=== PATIENT | female | born 2000 | race Caucasian/White ===

== ENCOUNTER 2023-04-01 20:34 | Emergency (ER) | payer OTHER ==
[~2023-04-01] VITALS: Ht 165.1 cm; Wt 107.9 kg
[2023-04-01 20:36] VITALS: TEMP 97.8
[2023-04-01] MEDS ORDERED: NS 1,000 ML IV ONE (22:40)
[2023-04-01 23:58] LABS: BASO % 0.5 % (0.0-1.0); EOS # 0.1 10^3/uL (0.0-0.5); EOS % 1.1 % (0.0-3.0); LYMPH # 2.8 10^3/uL (1.5-5.0); LYMPH % 34.6 % (24.0-44.0); MONO # 0.3 10^3/uL (0.0-0.8); MONO % 4.2 % (2.0-8.0); NEUTROPHILS # 4.8 10^3/uL (1.5-8.5); NEUTROPHILS % 59.2 % (36.0-66.0)
[2023-04-02 00:17] LABS: INR 0.98; PROTHROMBIN TIME 13.2 SECONDS (12.5-14.5)
[2023-04-02 00:18] LABS: PARTIAL THROMBOPLASTIN TIME 29.9 SECONDS (24.8-34.2)
[2023-04-02 00:22] LABS: CK-MB VALUE MASS 1.1 NG/ML (<3.6); LIPASE 35 U/L (12-53)
[2023-04-02 00:33] LABS: ALBUMIN 4.6 G/DL (3.2-5.2); ALKALINE PHOSPHATASE 121 U/L (46-116); ALT/SGPT 18 U/L (7.0-40); AST/SGOT 12 U/L (<34); BILIRUBIN,TOTAL 0.4 MG/DL (0.3-1.2); BLOOD UREA NITROGEN 15 MG/DL (9-23); CALCIUM LEVEL 9.8 MG/DL (8.5-10.1); CARBON DIOXIDE LEVEL 25 MMOL/L (20-31); CHLORIDE LEVEL 103 MMOL/L (98-107); GLUCOSE, FASTING 81 MG/DL (60-100); POTASSIUM SERUM 4.1 MMOL/L (3.5-5.1); SODIUM LEVEL 140 MMOL/L (136-145); TOTAL PROTEIN 8.3 G/DL (5.7-8.2)
[2023-04-02 00:51] LABS: HEMATOCRIT 45.1 % (36.0-47.0); HEMOGLOBIN 14.3 g/dl (12.0-15.5); MEAN CORPUSCULAR HEMOGLOBIN 25.1 pg (27.0-33.0); MEAN CORPUSCULAR HGB CONC 31.7 g/dl (32.0-36.5); MEAN CORPUSCULAR VOLUME 79.3 fl (80.0-96.0); PLATELET COUNT, AUTOMATED 241 10^3/uL (150-450); RED BLOOD COUNT 5.69 10^6/uL (4.00-5.40); WHITE BLOOD COUNT 8.2 10^3/uL (4.0-10.0)
[2023-04-02 01:19] LABS: CPK CREATINE PHOSPHOKINASE 129 U/L (34-145); MB/CK RELATIVE INDEX 0.85 (< OR =4)
[2023-04-02 01:20] LABS: D-DIMER QUANT < 270 ng/ml (<500)
[2023-04-02] MEDS ORDERED: HYOSCYAMINE SULFATE 0.125 MG SUBL TABLET SL ONE (01:50)
[2023-04-02] MEDS ORDERED: KETOROLAC 30 MG/ML 1ML VIAL IV ONE (01:50)
[2023-04-02 01:57] LABS: HCG, SERUM QUALITATIVE NEGATIVE (NEGATIVE)
[2023-04-02] MEDS ORDERED: ISOVUE-370 76% 100ML VIAL As Ordered ONE (01:57)
[2023-04-02] MEDS ORDERED: KETO10TAB PO (02:47)
[2023-04-02 03:00] VITALS: BP 110/56
[2023-04-02 03:04] VITALS: O2SAT 97
== END 2023-04-02 03:27 | disposition home or self-care (01) ==
LOC: M ED 20:34
DX: R07.9 Chest pain, unspecified (principal); Z79.899 Other long term (current) drug therapy
CPT/HCPCS: 71045; 71260; 80053; 82550; 82553; 83690; 83735; 84484; 84703; 85025; 85379; 85610; 85730; 93005; 96361; 96374; 99285; J1885; Q9967

== ENCOUNTER 2023-04-25 15:30 | Emergency (ER) | payer OTHER ==
[~2023-04-25] VITALS: Ht 165.1 cm; Wt 106.1 kg
[~2023-04-25 15:30] MED LIST: KETO10TAB PO
[2023-04-25 16:36] LABS: BASO % 0.2 % (0.0-1.0); EOS % 0.4 % (0.0-3.0); HEMATOCRIT 38.7 % (36.0-47.0); HEMOGLOBIN 12.3 g/dl (12.0-15.5); LYMPH # 1.1 10^3/uL (1.5-5.0); LYMPH % 13.3 % (24.0-44.0); MEAN CORPUSCULAR HEMOGLOBIN 25.1 pg (27.0-33.0); MEAN CORPUSCULAR HGB CONC 31.8 g/dl (32.0-36.5); MEAN CORPUSCULAR VOLUME 78.8 fl (80.0-96.0); MONO # 0.4 10^3/uL (0.0-0.8); MONO % 4.5 % (2.0-8.0); NEUTROPHILS # 6.9 10^3/uL (1.5-8.5); NEUTROPHILS % 81.4 % (36.0-66.0); PLATELET COUNT, AUTOMATED 225 10^3/uL (150-450); RED BLOOD COUNT 4.91 10^6/uL (4.00-5.40); WHITE BLOOD COUNT 8.4 10^3/uL (4.0-10.0)
[2023-04-25 16:57] LABS: BLOOD UREA NITROGEN 7 MG/DL (9-23); CARBON DIOXIDE LEVEL 23 MMOL/L (20-31); CHLORIDE LEVEL 106 MMOL/L (98-107); CREATININE FOR GFR 0.77 MG/DL (0.55-1.30); GLUCOSE, FASTING 87 MG/DL (60-100); POTASSIUM SERUM 4.2 MMOL/L (3.5-5.1); SODIUM LEVEL 139 MMOL/L (136-145)
[2023-04-25 20:31] VITALS: BP 139/72; TEMP 97.7; O2SAT 100
== END 2023-04-25 20:32 | disposition home or self-care (01) ==
LOC: M ED 15:30
DX: O20.9 Hemorrhage in early pregnancy, unspecified (principal); Z3A.00 Weeks of gestation of pregnancy not specified

== ENCOUNTER → 2023-04-27 | Outpatient (CLI) | payer OTHER | LOC: M LAB 16:50 | PROVIDERS: ATTEND Physician Assistant | DX: O20.8 Other hemorrhage in early pregnancy (principal) ==

== ENCOUNTER → 2023-05-05 | Outpatient (CLI) | payer OTHER | LOC: M LAB 15:44 | PROVIDERS: ATTEND Obstetrics & Gynecology | DX: N91.2 Amenorrhea, unspecified (principal) ==

== ENCOUNTER 2023-06-17 09:42 | Emergency (ER) | payer OTHER ==
[~2023-06-17] VITALS: Ht 165.1 cm; Wt 100.9 kg
[2023-06-17] MEDS ORDERED: PNV,1TAB3 (09:56)
[2023-06-17] MEDS ORDERED: UNIS25TA3 (09:56)
[2023-06-17] MEDS ORDERED: PYRI50TA41 (09:56)
[2023-06-17 12:03] LABS: BASO % 0.2 % (0.0-1.0); EOS % 0.4 % (0.0-3.0); HEMATOCRIT 38.6 % (36.0-47.0); HEMOGLOBIN 12.6 g/dl (12.0-15.5); LYMPH # 1.4 10^3/uL (1.5-5.0); LYMPH % 17.6 % (24.0-44.0); MEAN CORPUSCULAR HEMOGLOBIN 26.1 pg (27.0-33.0); MEAN CORPUSCULAR HGB CONC 32.6 g/dl (32.0-36.5); MEAN CORPUSCULAR VOLUME 79.9 fl (80.0-96.0); MONO # 0.2 10^3/uL (0.0-0.8); MONO % 2.7 % (2.0-8.0); NEUTROPHILS # 6.3 10^3/uL (1.5-8.5); NEUTROPHILS % 78.9 % (36.0-66.0); PLATELET COUNT, AUTOMATED 216 10^3/uL (150-450); RED BLOOD COUNT 4.83 10^6/uL (4.00-5.40)
[2023-06-17] MEDS ORDERED: ONDANSETRON 4MG ORAL DISINTEGRATING TAB PO ONE (12:20)
[2023-06-17 12:37] LABS: BLOOD UREA NITROGEN 6 MG/DL (9-23); CALCIUM LEVEL 8.9 MG/DL (8.5-10.1); CARBON DIOXIDE LEVEL 21 MMOL/L (20-31); CHLORIDE LEVEL 103 MMOL/L (98-107); CREATININE FOR GFR 0.55 MG/DL (0.55-1.30); GLUCOSE, FASTING 79 MG/DL (60-100); POTASSIUM SERUM 3.8 MMOL/L (3.5-5.1); SODIUM LEVEL 135 MMOL/L (136-145)
[2023-06-17 12:50] LABS: HCG, SERUM QUANTITATIVE 77271.4 MIU/ML (<4.2)
[2023-06-17] MEDS ORDERED: ONDA4TAB6 PO (13:33)
[2023-06-17 13:38] VITALS: BP 115/58; TEMP 98.2; O2SAT 99
== END 2023-06-17 14:15 | disposition home or self-care (01) ==
LOC: M ED 09:42
DX: O21.9 Vomiting of pregnancy, unspecified (principal)

== ENCOUNTER 2023-08-04 09:06 | Emergency (ER) | payer OTHER ==
[~2023-08-04] VITALS: Ht 165.1 cm; Wt 98.6 kg
[~2023-08-04 09:06] MED LIST changes: +ONDA4TAB6 PO; +PNV,1TAB3; +PYRI50TA41; +UNIS25TA3
[2023-08-04 11:48] LABS: BASO % 0.2 % (0.0-1.0); EOS # 0.1 10^3/uL (0.0-0.5); EOS % 0.6 % (0.0-3.0); HEMATOCRIT 36.8 % (36.0-47.0); HEMOGLOBIN 12.4 g/dl (12.0-15.5); LYMPH # 1.1 10^3/uL (1.5-5.0); LYMPH % 13.4 % (24.0-44.0); MEAN CORPUSCULAR HGB CONC 33.7 g/dl (32.0-36.5); MEAN CORPUSCULAR VOLUME 80.2 fl (80.0-96.0); MONO # 0.3 10^3/uL (0.0-0.8); MONO % 3.6 % (2.0-8.0); NEUTROPHILS # 6.8 10^3/uL (1.5-8.5); NEUTROPHILS % 81.8 % (36.0-66.0); PLATELET COUNT, AUTOMATED 208 10^3/uL (150-450); RED BLOOD COUNT 4.59 10^6/uL (4.00-5.40); WHITE BLOOD COUNT 8.4 10^3/uL (4.0-10.0)
[2023-08-04] MEDS ORDERED: NS 1,000 ML IV ONE (12:25)
[2023-08-04 13:18] LABS: INR 1.07; PROTHROMBIN TIME 13.5 SECONDS (12.5-14.5)
[2023-08-04 13:19] LABS: PARTIAL THROMBOPLASTIN TIME 29.7 SECONDS (24.8-34.2)
[2023-08-04 13:22] LABS: D-DIMER QUANT 0.59 ug/mL (<0.5)
[2023-08-04 13:25] LABS: ALBUMIN 3.1 G/DL (3.2-5.2); ALKALINE PHOSPHATASE 91 U/L (46-116); ALT/SGPT 16 U/L (7.0-40); AST/SGOT 18 U/L (<34); BILIRUBIN,DIRECT < 0.1 MG/DL (<0.4); BILIRUBIN,TOTAL 0.5 MG/DL (0.3-1.2); BLOOD UREA NITROGEN 6 MG/DL (9-23); CALCIUM LEVEL 8.7 MG/DL (8.5-10.1); CARBON DIOXIDE LEVEL 22 MMOL/L (20-31); CHLORIDE LEVEL 102 MMOL/L (98-107); CK-MB VALUE MASS < 1.0 NG/ML (<3.6); CREATININE FOR GFR 0.55 MG/DL (0.55-1.30); GLUCOSE, FASTING 81 MG/DL (60-100); MAGNESIUM LEVEL 1.8 MG/DL (1.8-2.4); POTASSIUM SERUM 4.1 MMOL/L (3.5-5.1); SODIUM LEVEL 134 MMOL/L (136-145); TOTAL PROTEIN 6.8 G/DL (5.7-8.2)
[2023-08-04 13:27] LABS: FREE T4 1.13 NG/DL (0.83-1.43); THYROID STIMULATING HORMONE 2.854 uIU/ML (0.48-4.17)
[2023-08-04 13:30] LABS: CPK CREATINE PHOSPHOKINASE 26 U/L (34-145); MB/CK RELATIVE INDEX 3.84 (< OR =4)
[2023-08-04 15:03] VITALS: TEMP 98; O2SAT 100
[2023-08-04 15:04] VITALS: BP 116/73
[2023-08-04] MEDS ORDERED: ONDA4TAB6 PO (15:13)
== END 2023-08-04 15:35 | disposition home or self-care (01) ==
LOC: M ED 09:06
DX: O99.891 Other specified diseases and conditions complicating pregnancy (principal); E87.6 Hypokalemia; O99.283 Endocrine, nutritional and metabolic diseases complicating pregnancy, third trimester; O26.50 Maternal hypotension syndrome, unspecified trimester; Z79.899 Other long term (current) drug therapy

== ENCOUNTER 2023-09-10 18:17 | Outpatient (CLI) | payer OTHER ==
[~2023-09-10] VITALS: Ht 165.1 cm; Wt 102.7 kg
[2023-09-10] MEDS ORDERED: ECOT81TA5 PO (18:44)
[2023-09-10] MEDS ORDERED: HOME MED LIST COMPLETE! XX SCH (18:45)
[2023-09-10 19:02] VITALS: BP 125/71
[2023-09-10 19:28] LABS: APPEARANCE, URINE HAZY (CLEAR); BACTERIA, URINE AUTO 1+ (NEGATIVE); BILIRUBIN, URINE AUTO NEGATIVE (NEGATIVE); BLOOD, URINE BLOOD NEGATIVE (NEGATIVE); COLOR, URINE YELLOW (YELLOW); GLUCOSE, URINE (UA) AUTO NEGATIVE (NEGATIVE); KETONE, URINE AUTO NEGATIVE (NEGATIVE); LEUKOCYTE ESTERASE, URINE AUTO TRACE (NEGATIVE); MUCUS, URINE SMALL (NEGATIVE); NITRITE, URINE AUTO NEGATIVE (NEGATIVE); PROTEIN, URINE AUTO NEGATIVE (NEGATIVE); RBC, URINE AUTO 2 /HPF (0-3); SPECIFIC GRAVITY URINE AUTO 1.031 (1.002-1.035); SQUAMOUS EPITHELIAL CELL UR AU 4 /HPF (0-6); UROBILINOGEN, URINE AUTO 0.2 mg/dL (0.0-2.0); WBC, URINE AUTO 3 /HPF (0-3)
[2023-09-10 19:34] VITALS: BP 117/64
[2023-09-10] MEDS ORDERED: diphenhydrAMINE 25MG CAP PO ONE (19:40)
[2023-09-10] MEDS ORDERED: ACETAMINOPHEN 500 MG TAB PO ONE (19:40)
[2023-09-10] MEDS ORDERED: METOCLOPRAMIDE 10MG TAB PO ONE (19:40)
[2023-09-10 19:49] LABS: HEMATOCRIT 33.9 % (36.0-47.0); HEMOGLOBIN 10.9 g/dl (12.0-15.5); MEAN CORPUSCULAR HEMOGLOBIN 26.8 pg (27.0-33.0); MEAN CORPUSCULAR HGB CONC 32.2 g/dl (32.0-36.5); MEAN CORPUSCULAR VOLUME 83.3 fl (80.0-96.0); PLATELET COUNT, AUTOMATED 237 10^3/uL (150-450); RED BLOOD COUNT 4.07 10^6/uL (4.00-5.40); WHITE BLOOD COUNT 11.5 10^3/uL (4.0-10.0)
[2023-09-10 19:57] LABS: TOTAL PROTEIN,RANDOM URINE 25.2 MG/DL (0.0-14.0)
[2023-09-10 19:58] LABS: URIC ACID 3.9 MG/DL (3.1-7.8)
[2023-09-10 20:00] LABS: LDH LACTATE DEHYDROGENASE 110 U/L (120-246)
[2023-09-10 20:02] LABS: CREATININE,RANDOM URINE 189.3 MG/DL
[2023-09-10 20:02] LABS: ALT/SGPT 10 U/L (7.0-40); AST/SGOT < 8 U/L (<34); BILIRUBIN,TOTAL 0.2 MG/DL (0.3-1.2); CREATININE FOR GFR 0.51 MG/DL (0.55-1.30)
[2023-09-10 20:36] VITALS: BP 110/55
[2023-09-10] MEDS ORDERED: KETOROLAC 30 MG/ML 1ML VIAL IM ONE (20:45)
== END 2023-09-10 21:13 | disposition home or self-care (01) ==
LOC: M LDO 18:17
PROVIDERS: ATTEND Obstetrics & Gynecology
DX: O26.892 Other specified pregnancy related conditions, second trimester (principal); R51.9 Headache, unspecified; R10.11 Right upper quadrant pain; O34.219 Maternal care for unspecified type scar from previous cesarean delivery; Z79.82 Long term (current) use of aspirin; Z3A.24 24 weeks gestation of pregnancy
CPT/HCPCS: 36415; 59025; 81001; 82247; 82570; 83615; 84156; 84450; 84460; 84550; 85027; 96372; G0463; J1885

== ENCOUNTER 2023-11-09 16:10 | Outpatient (CLI) | payer OTHER ==
[~2023-11-09] VITALS: Ht 165.1 cm; Wt 105.3 kg
[~2023-11-09 16:10] MED LIST changes: +ECOT81TA5 PO
[2023-11-09] MEDS ORDERED: TUMS500C PO (16:28)
[2023-11-09] MEDS ORDERED: HOME MED LIST COMPLETE! XX SCH (16:30)
[2023-11-09 16:34] VITALS: BP 126/72
== END 2023-11-09 17:40 | disposition home or self-care (01) ==
LOC: M LDO 16:10
PROVIDERS: ATTEND Obstetrics & Gynecology
DX: O26.893 Other specified pregnancy related conditions, third trimester (principal); M54.9 Dorsalgia, unspecified; O34.219 Maternal care for unspecified type scar from previous cesarean delivery; Z3A.32 32 weeks gestation of pregnancy; Z87.51 Personal history of pre-term labor; Z79.82 Long term (current) use of aspirin
CPT/HCPCS: 59025; 76815; G0463

== ENCOUNTER 2023-11-18 10:34 | Outpatient (CLI) | payer OTHER ==
[~2023-11-18] VITALS: Ht 165.1 cm; Wt 106.2 kg
[~2023-11-18 10:34] MED LIST changes: +TUMS500C PO
[2023-11-18] MEDS ORDERED: ONDA4TAB6 PO (10:51)
[2023-11-18 10:55] VITALS: BP 107/65
[2023-11-18] MEDS ORDERED: REGL5TAB2 PO (11:00)
[2023-11-18] MEDS ORDERED: BENA25CA4 PO (11:00)
[2023-11-18] MEDS ORDERED: ACET325C5 PO (11:00)
[2023-11-18] MEDS: LACTATED RINGER'S 1000 ML IV STA (11:43)
[2023-11-18] MEDS: ACETAMINOPHEN 325 MG TAB PO ONE (11:56)
[2023-11-18 11:58] VITALS: BP 101/58
[2023-11-18 12:07] LABS: URIC ACID 4.6 MG/DL (3.1-7.8)
[2023-11-18 12:09] LABS: LDH LACTATE DEHYDROGENASE 122 U/L (120-246)
[2023-11-18 12:10] LABS: ALBUMIN 2.5 G/DL (3.2-5.2); ALKALINE PHOSPHATASE 136 U/L (46-116); ALT/SGPT < 9 U/L (7.0-40); AST/SGOT < 8 U/L (<34); BILIRUBIN,TOTAL 0.2 MG/DL (0.3-1.2); BLOOD UREA NITROGEN 9 MG/DL (9-23); CALCIUM LEVEL 8.5 MG/DL (8.5-10.1); CARBON DIOXIDE LEVEL 23 MMOL/L (20-31); CHLORIDE LEVEL 106 MMOL/L (98-107); CREATININE FOR GFR 0.61 MG/DL (0.55-1.30); GLUCOSE, FASTING 82 MG/DL (60-100); POTASSIUM SERUM 4.2 MMOL/L (3.5-5.1); SODIUM LEVEL 136 MMOL/L (136-145)
[2023-11-18 12:10] LABS: BASO % 0.2 % (0.0-1.0); EOS % 0.3 % (0.0-3.0); HEMATOCRIT 32.6 % (36.0-47.0); HEMOGLOBIN 10.5 g/dl (12.0-15.5); LYMPH # 1.8 10^3/uL (1.5-5.0); LYMPH % 14.5 % (24.0-44.0); MEAN CORPUSCULAR HEMOGLOBIN 25.2 pg (27.0-33.0); MEAN CORPUSCULAR HGB CONC 32.2 g/dl (32.0-36.5); MEAN CORPUSCULAR VOLUME 78.4 fl (80.0-96.0); MONO # 0.6 10^3/uL (0.0-0.8); NEUTROPHILS # 9.6 10^3/uL (1.5-8.5); NEUTROPHILS % 79.4 % (36.0-66.0); PLATELET COUNT, AUTOMATED 251 10^3/uL (150-450); RED BLOOD COUNT 4.16 10^6/uL (4.00-5.40); WHITE BLOOD COUNT 12.1 10^3/uL (4.0-10.0)
[2023-11-18] MEDS: LR 1,000 ML IV SCH (12:18)
[2023-11-18 12:21] LABS: APPEARANCE, URINE HAZY (CLEAR); BACTERIA, URINE AUTO 1+ (NEGATIVE); BILIRUBIN, URINE AUTO NEGATIVE (NEGATIVE); BLOOD, URINE BLOOD NEGATIVE (NEGATIVE); COLOR, URINE YELLOW (YELLOW); GLUCOSE, URINE (UA) AUTO NEGATIVE (NEGATIVE); KETONE, URINE AUTO NEGATIVE (NEGATIVE); LEUKOCYTE ESTERASE, URINE AUTO NEGATIVE (NEGATIVE); NITRITE, URINE AUTO NEGATIVE (NEGATIVE); PROTEIN, URINE AUTO NEGATIVE (NEGATIVE); RBC, URINE AUTO 0 /HPF (0-3); SPECIFIC GRAVITY URINE AUTO 1.013 (1.002-1.035); SQUAMOUS EPITHELIAL CELL UR AU 3 /HPF (0-6); UROBILINOGEN, URINE AUTO 0.2 mg/dL (0.0-2.0); WBC, URINE AUTO 1 /HPF (0-3)
[2023-11-18 12:29] LABS: TOTAL PROTEIN,RANDOM URINE 15.1 MG/DL (0.0-14.0)
[2023-11-18 12:33] LABS: CREATININE,RANDOM URINE 109.7 MG/DL
[2023-11-18 13:02] VITALS: BP 99/56
[2023-11-18] MEDS: diphenhydrAMINE 50MG/ML VIAL IV STA (13:18)
[2023-11-18] MEDS: BETAMETHASONE SOLUSPAN 6MG/ML 5ML VIAL IM SCH (13:19)
[2023-11-18 14:26] VITALS: BP 103/74
== END 2023-11-18 16:16 | disposition home or self-care (01) ==
LOC: M LDO 10:34
PROVIDERS: ATTEND Advanced Practice Midwife
DX: O26.893 Other specified pregnancy related conditions, third trimester (principal); R51.9 Headache, unspecified; Z3A.33 33 weeks gestation of pregnancy; O34.219 Maternal care for unspecified type scar from previous cesarean delivery; Z79.82 Long term (current) use of aspirin
CPT/HCPCS: 36415; 59025; 70450; 76811; 76819; 76820; 80053; 81001; 82247; 82570; 83615; 84156; 84450; 84460; 84550; 85025; 86780; 87486; 87581; 87633; 87798; 96372; 96374; G0463; J0702; J1200

== ENCOUNTER 2023-11-23 11:08 | Inpatient (IN) | payer OTHER ==
[2023-11-23] VITALS (44 sets, daily range): BP systolic 86–164; BP diastolic 50–89; TEMP 96.3–96.9; O2SAT 96–100
[~2023-11-23] VITALS: Ht 165.1 cm; Wt 105.6 kg
[~2023-11-23 11:08] MED LIST changes: +ACET325C5 PO; +BENA25CA4 PO; +REGL5TAB2 PO
[2023-11-23] MEDS ORDERED: TRANEXAMIC ACID INJection 1,000 MG in NS 100 ML IV PRN ×2 (12:15→18:00)
[2023-11-23] MEDS ORDERED: OXYTOCIN DRIP 30 UNITS in IV 1 EA IV PRN ×4 (12:15→18:00)
[2023-11-23] MEDS: LR 1,000 ML IV SCH ×2 (12:45→18:00)
[2023-11-23 12:52] LABS: HEMATOCRIT 35.5 % (36.0-47.0); HEMOGLOBIN 11.4 g/dl (12.0-15.5); MEAN CORPUSCULAR HEMOGLOBIN 25.2 pg (27.0-33.0); MEAN CORPUSCULAR HGB CONC 32.1 g/dl (32.0-36.5); MEAN CORPUSCULAR VOLUME 78.4 fl (80.0-96.0); PLATELET COUNT, AUTOMATED 290 10^3/uL (150-450); RED BLOOD COUNT 4.53 10^6/uL (4.00-5.40); WHITE BLOOD COUNT 14.9 10^3/uL (4.0-10.0)
[2023-11-23] MEDS: ceFAZolin SOD 2 GM in IV 1 EA IV ONE (15:05)
[2023-11-23] MEDS: BICITRA 30ML SOLN UDC PO ONE (15:05)
[2023-11-23] MEDS ORDERED: ONDANSETRON 4MG 2ML VIAL As Ordered ONE (17:25)
[2023-11-23] MEDS ORDERED: OXYTOCIN 30UNITS IN 0.9% NaCl 500ML IV BAG As Ordered ONE (17:25)
[2023-11-23] MEDS ORDERED: METOCLOPRAMIDE INJ 10MG/2ML VIAL As Ordered ONE (17:25)
[2023-11-23] MEDS ORDERED: MIDAZOLAM INJ 2MG/2ML VIAL As Ordered ONE (17:25)
[2023-11-23] MEDS ORDERED: PHENYLephrine 500MCG 5ML (100MCG/ML) SYRINGE As Ordered ONE (17:25)
[2023-11-23] MEDS ORDERED: KETOROLAC 60MG 2ML VIAL As Ordered ONE (17:25)
[2023-11-23] MEDS ORDERED: MORPHINE PRES-FREE INJ 10 MG/10 ML VIAL As Ordered ONE (17:25)
[2023-11-23] MEDS ORDERED: ACETAMINOPHEN 1000MG 100ML IV BAG As Ordered ONE (17:25)
[2023-11-23] MEDS ORDERED: fentaNYL 100 MCG/2 ML INJECTION As Ordered ONE (17:25)
[2023-11-23] MEDS ORDERED: KETAMINE HCL 200MG/20ML VIAL As Ordered ONE (17:25)
[2023-11-23 17:29] LABS: CORD GAS ABE A -0.3; CORD GAS HCO3 A 25.2 MMOL/L; CORD GAS O2 SAT A 58.5 %; CORD GAS PCO2 A 43.9 mmHg; CORD GAS PH A 7.376 UNITS; CORD GAS SBC A 23.3 MMOL/L; CORD GAS TCO2 A 26.5 MMOL/L
[2023-11-23 17:31] LABS: CORD GAS ABE V -1.7; CORD GAS HCO3 V 25.4 MMOL/L; CORD GAS PH V 7.299 UNITS; CORD GAS SBC V 22.6 MMOL/L; CORD GAS TCO2 V 27.1 MMOL/L
[2023-11-23] MEDS ORDERED: fentaNYL 100 MCG/2 ML INJECTION IV PRN (18:00)
[2023-11-23] MEDS: SLF 3 ML SYR IV SCH (18:00)
[2023-11-23] MEDS ORDERED: NALBUPHINE HCL 1MG/0.1ML (100MG/10ML) MDV IV PRN ×2 (18:00)
[2023-11-23] MEDS ORDERED: MOM 30ML SUSPENSION UDC PO PRN (18:00)
[2023-11-23] MEDS ORDERED: OXYTOCIN INJ 10UNITS/ML 1ML VIAL IM PRN (18:00)
[2023-11-23] MEDS ORDERED: CARBOPROST TROMETHAMINE 250 MCG/ML AMP IM PRN (18:00)
[2023-11-23] MEDS ORDERED: **NOTE PATIENT COMMENT** MISC XX SCH (18:00)
[2023-11-23] MEDS ORDERED: METHYLERGONOVINE MALEATE 0.2MG/ML 1ML VIAL IM PRN (18:00)
[2023-11-23] MEDS ORDERED: diphenhydrAMINE 50MG/ML VIAL IV PRN (18:00)
[2023-11-23] MEDS ORDERED: OXYTOCIN INJ 10UNITS/ML 1ML VIAL IV PRN (18:00)
[2023-11-23] MEDS ORDERED: NALOXONE INJ 0.4MG/1ML VIAL IV PRN ×2 (18:00)
[2023-11-23] MEDS ORDERED: RHOGAM 300MCG (1500IU) INJ IM SCH (18:00)
[2023-11-23] MEDS ORDERED: METOCLOPRAMIDE INJ 10MG/2ML VIAL IV PRN (18:00)
[2023-11-23] MEDS ORDERED: ONDANSETRON 4MG 2ML VIAL IV PRN ×2 (18:00)
[2023-11-23] MEDS ORDERED: LIDOCAINE 1% MDV 20ML VIAL INFIL PRN (18:00)
[2023-11-23] MEDS: MAG Sulf (L&D) 4 GM/100 ML 4 GM in IV 1 EA IV ONE (18:18)
[2023-11-23] MEDS: MAG Sulf (OBGYN) 20GM/500ML 20,000 MG in IV 1 EA IV SCH (18:18)
[2023-11-23] MEDS: oxyCODONE 5MG TAB PO PRN (19:07)
[2023-11-23] MEDS ORDERED: oxyCODONE 5MG TAB As Ordered ONE (19:07)
[2023-11-23] MEDS: DOCUSATE SODIUM 100MG CAPSULE PO SCH (21:00)
[2023-11-24] VITALS (18 sets, daily range): BP systolic 101–130; BP diastolic 54–76; TEMP 96.9; O2SAT 96–99
[2023-11-24] MEDS: diphenhydrAMINE 50MG/ML VIAL IV PRN (04:36)
[2023-11-24] MEDS: KETOROLAC 30 MG/ML 1ML VIAL IV SCH ×3 (04:37→19:41)
[2023-11-24 07:21] LABS: MEAN CORPUSCULAR HEMOGLOBIN 25.1 pg (27.0-33.0); MEAN CORPUSCULAR HGB CONC 31.7 g/dl (32.0-36.5); PLATELET COUNT, AUTOMATED 232 10^3/uL (150-450); RED BLOOD COUNT 3.67 10^6/uL (4.00-5.40); WHITE BLOOD COUNT 14.8 10^3/uL (4.0-10.0)
[2023-11-24 07:24] LABS: HEMOGLOBIN 9.2 g/dl (12.0-15.5)
[2023-11-24] MEDS: PRENATAL VITAMINS CHEWABLE TABLET PO SCH (08:59)
[2023-11-24] MEDS: oxyCODONE 5MG TAB PO PRN (09:56)
[2023-11-24] MEDS ORDERED: HOME MED LIST COMPLETE! XX SCH (15:20)
[2023-11-25 02:00] VITALS: BP 106/56; O2SAT 98
[2023-11-25] MEDS: IBUPROFEN 800 MG TAB PO SCH (03:45)
[2023-11-25] MEDS ORDERED: diphenhydrAMINE 25MG CAP PO PRN (05:50)
[2023-11-25 06:00] VITALS: BP 108/53; O2SAT 97
[2023-11-25] MEDS: ACETAMINOPHEN 500 MG TAB PO PRN (08:10)
[2023-11-25 10:00] VITALS: BP 114/57; O2SAT 98
[2023-11-25] MEDS: SIMETHICONE 80MG CHEW TAB PO PRN (11:29)
[2023-11-25 14:00] VITALS: BP 118/55; O2SAT 97
[2023-11-25] MEDS: oxyCODONE 5MG TAB PO PRN (17:06)
[2023-11-25 18:20] VITALS: BP 128/72; O2SAT 98
[2023-11-25 22:00] VITALS: BP 132/62; O2SAT 98
[2023-11-26 02:00] VITALS: BP 132/58; O2SAT 97
[2023-11-26 06:00] VITALS: BP 128/58; O2SAT 96
[2023-11-26 10:00] VITALS: BP 128/61; O2SAT 98
== END 2023-11-26 15:20 | disposition home or self-care (01) | DRG 773 ==
LOC: M LDO 11:08 → M LDI 12:20 → M OBS 11-24 09:54
PROVIDERS: ADMIT Advanced Practice Midwife; ATTEND Obstetrics & Gynecology
PROC: 10D00Z1 Extraction of Products of Conception, Low, Open Approach (ICD-10-PCS; principal; 2023-11-23 16:30)
DX: O14.14 Severe pre-eclampsia complicating childbirth (principal); Z3A.34 34 weeks gestation of pregnancy; O34.211 Maternal care for low transverse scar from previous cesarean delivery; Z37.0 Single live birth

== ENCOUNTER 2024-02-06 14:10 | Emergency (ER) | payer OTHER ==
[~2024-02-06] VITALS: Ht 165.1 cm; Wt 99.9 kg
[~2024-02-06 14:10] MED LIST changes: +ONDA-282 PO; -ONDA4TAB6 PO
[2024-02-06] MEDS ORDERED: BENZ200C70 PO (16:09)
[2024-02-06 16:19] VITALS: BP 131/76; TEMP 99.4; O2SAT 100
== END 2024-02-06 16:20 | disposition home or self-care (01) ==
LOC: M ED 14:10
DX: U07.1 COVID-19 (principal)